=== PATIENT | female | born 1965 | race Caucasian/White ===

== ENCOUNTER → 2018-10-30 | Day surgery (SDC) | payer OTHER ==
[2018-10-22 16:14] LABS: BASOPHILS # (AUTO) 0.1 (0.0-0.1); BASOPHILS % 0.9 % (0.0-1.0); EOSINOPHILS # (AUTO) 0.3 (0.0-0.4); EOSINOPHILS % 3.8 % (0.0-6.0); HEMATOCRIT 41.7 % (34.2-44.1); HEMOGLOBIN 13.8 g/dL (12.0-16.0); LYMPHOCYTES # (AUTO) 2.3 (1.0-3.2); LYMPHOCYTES % 33.7 % (18.0-39.1); MEAN CORPUSCULAR HEMOGLOBIN 31.3 pg (28-32); MEAN CORPUSCULAR HGB CONC 33.1 g/dL (31-35); MEAN CORPUSCULAR VOLUME 94.6 fL (81-99); MONOCYTES # (AUTO) 0.5 (0.2-0.8); MONOCYTES % 6.9 % (4.4-11.3); NEUTROPHILS # (AUTO) 3.8 (2.1-6.9); NEUTROPHILS % 54.4 % (38.7-80.0); PLATELET COUNT 202 x10e3/uL (140-360); RED BLOOD COUNT 4.41 x10e6/uL (3.6-5.1); RED CELL DISTRIBUTION WIDTH 12.1 % (11.7-14.4)
--- NOTE | 2018-10-22 16:14 | Diagnostic Imaging Report ---
EXAMINATION: PA and lateral views of the chest. COMPARISON: None CLINICAL HISTORY: Preoperative study for foot surgery DISCUSSION: Lines/tubes: None. Lungs: The lungs are well inflated and clear. There is no evidence of pneumonia or pulmonary edema. Pleura: There is no pleural effusion or pneumothorax. Heart and mediastinum: The cardiomediastinal silhouette is normal. Bones and soft tissues: No acute bony abnormalities. Cervical spine fusion hardware partially visualized. IMPRESSION: No acute cardiopulmonary abnormalities. Signed by: Dr. Elieser Grande M.D. on 10/22/2018 4:11 PM
[2018-10-22 16:31] LABS: ANION GAP 15.6 mmol/L (8-16); BLOOD UREA NITROGEN 17 mg/dL (7-26); BUN/CREATININE RATIO 20 (6-25); CALCIUM 9.4 mg/dL (8.4-10.2); CARBON DIOXIDE 28 mmol/L (22-29); CHLORIDE 101 mmol/L (98-107); CREATININE, SERUM 0.86 mg/dL (0.57-1.11); EST GLOMERULAR FILTRATION RATE > 60 ML/MIN (60-); GLUCOSE 97 mg/dL (74-118); POTASSIUM 4.6 mmol/L (3.5-5.1); SODIUM 140 mmol/L (136-145)
[~2018-10-30] MED LIST: ACETAMINOPHEN 1000 MG/100 ML 100 ML IV ONE; ASPIR 8181 MG PO; ATENOLOL25 MG PO; BUPIVACAINE HCL 0.5% 10ML MPF VIAL INJ ONE; CEFAZOLIN SOD 2 GM/D5W 50ML 50 ML IV ONE; DEXAMETHASONE SOD PHOS INJ 4 MG/ML VIAL ONE; EPHEDRINE SULFATE INJ 50 MG/10 ML SYR ONE; FENTANYL CITRATE/PF 100MCG/2 ML INJ ONE; FLUOXETINE HCL20 M1 PO; KETOROLAC TROMETHAMINE 30 MG/ML VIAL ONE; LIDOCAINE HCL 2% LOCAL INJ 5 ML SDV VIAL INJ ONE; LIPITOR10 MG PO; METOPROLOL SUCC50 MG PO; MIDAZOLAM HCL 2 MG/2 ML VIAL ONE; MUPIROCIN 2% OINT 22 GM TUBE ONE; NAPROXEN375 M1 PO; NECON1 EAC1; ONDANSETRON HCL INJ 2 MG/ML VIAL ONE; PRINIVIL20 MG PO; PROPOFOL IV EMULSION 10 MG/ML 20 ML VIAL ONE; SEVOFLURANE INHAL SOLN 250 ML PEN BTL ONE; TRAMADOL-ACETAMI1 EA; ULTRAM 50MG50 MG PO; ZOCOR20 MG PO
--- OUTSIDE RECORDS SUMMARY | 2018-10-30 06:36 | XMS REPORT ---
[facility] Address Unknown Phone Unavailable Care Team Providers Care Financial Services Internship Name Role Phone FILEMON JENSEN Unavailable Unavailable Problems This patient has no known problems. Allergies, Adverse Reactions, Alerts This patient has no known allergies or adverse reactions. Medications This patient has no known medications. Results Test Description Test Time Test Comments Text Results Atomic Results Result Comments CHEST 2 VIEWS 2018-10-22 16:10:00 [facility] [address] [address] Patient Name: EMILIANA PAZ MR #: [id number] : 1965 Age/Sex: 53/F Req #: [id number] Adm Physician: Ordered by: FILEMON JENSEN DPM Report #: [id number] Location: OR Room/Bed: Procedure: [id number] DX/CHEST 2 VIEWS Exam Date: 10/22/18 Exam Time: 1555 REPORT STATUS: Signed EXAMINATION: PA and lateral views of the chest. COMPARISON: None CLINICAL HISTORY: Preoperative study for foot surgery DISCUSSION: Lines/tubes: None. Lungs: The lungs are well inflated and clear. There is no evidence of pneumonia or pulmonary edema. Pleura: There is no pleural effusion or pneumothorax. Heart and mediastinum: The cardiomediastinal silhouette is normal. Bones and soft tissues: No acute bony abnormalities. Cervical spine fusion hardware partially visualized. IMPRESSION: No acute cardiopulmonary abnormalities. Signed by: Dr. Alicia Warren M.D. on 10/22/2018 4:11 PM Dictated By: ALICIA WARREN MD 161 Transcribed By: JOHN on 10/22/181610 COPY TO: FILEMON JENSEN DPM
--- NOTE | 2018-10-30 07:20 | NUR ---
SPIRITUAL CARE - Pre-Surgery Assessment: Pt in bed. Pt reported supportive attention from family and friends. Intervention: I provided pastoral presence, hospitality, and sympathetic listening. I acquainted pt with availability of processing manager while hospitalized. Outcome: Pt expressed appreciation for visit. No need for follow up indicated at this time. ABDULKADIR [facility] Spiritual Care Department O: [phone] Pager: [phone] ([phone] number calling from)
[2018-10-30 11:35] VITALS: BP 134/63
--- NOTE | 2018-10-30 16:10 | Operative Report ---
DATE OF PROCEDURE: October 30, 2018 PREOPERATIVE DIAGNOSIS: Plantar fasciitis, plantar aspect of the left foot. POSTOPERATIVE DIAGNOSIS: Plantar fasciitis, plantar aspect of the left foot. TITLE OF OPERATION: Endoscopic plantar fasciotomy of the left foot. PROCEDURE IN DETAIL: The patient was taken to the operating room in a mildly sedated state and placed upon the operating table in the supine position. Following induction of general anesthetic, the left lower extremity is elevated to 60 degrees to exsanguinate. Pneumatic ankle tourniquet was inflated to 250 mmHg. The foot was placed on the operating table. The medial aspect was entered with a plantar stab incision plantar medial. Plantar fascia was identified and dissected free from its constricting and overlying tissues. The fascia and underlying musculature were elongated by a hook knife through the central and leading edge of the medial band the appropriate length to facilitate appropriate tension. The area was irrigated with copious amounts of sterile saline solution. Deep closure was 3-0 Vicryl, subcutaneous closure 4-0 Vicryl and skin closure 4-0 nylon. The areas of surgery were then blocked with 0.5 Marcaine and Decadron [place]. Human tissue allograft was used to facilitate healing. Release of the pneumatic thigh tourniquet showed normal hyperemic flush to all digits of the left foot. The patient left the operating room with vital signs stable and in apparent satisfactory condition having tolerated both anesthetic and procedure very well. Job#: [id number] SURINDER
== END | disposition home or self-care (01) ==
LOC: OR 06:33
PROVIDERS: ATTEND Podiatrist Foot Surgery
DX: M72.2 Plantar fascial fibromatosis (principal); E78.00 Pure hypercholesterolemia, unspecified; R03.0 Elevated blood-pressure reading, without diagnosis of hypertension; Z01.810 Encounter for preprocedural cardiovascular examination; Z01.812 Encounter for preprocedural laboratory examination; Z01.818 Encounter for other preprocedural examination; Z88.2 Allergy status to sulfonamides; Z79.82 Long term (current) use of aspirin
CPT/HCPCS: 36415; 71046; 80048; 85025; 93005; J0690; J1100; J1885; J2001; J2250; J2405